=== PATIENT | female | born 1950 | race Caucasian/White ===

== ENCOUNTER 2019-11-07 06:04 | Observation (INO) ==
[2019-11-07] MEDS ORDERED: Acetaminophen IV 1,000 MG/100 ML INFUS..BTL IVPB ONE (06:27)
[2019-11-07] MEDS ORDERED: Famotidine 20 MG/2 ML VIAL IVP ONE (06:27)
[2019-11-07] MEDS ORDERED: CeFAZolin Syr 2,000MG/20 ML 2,000 MG/20 ML SYRINGE IVPB ONE (06:33)
[2019-11-07] MEDS ORDERED: Dexamethasone 4 MG/ML VIAL ONE (07:14)
[2019-11-07] MEDS ORDERED: *HR* Succinylcholine 200 MG/10 ML VIAL IVP ONE (07:14)
[2019-11-07] MEDS ORDERED: Lidocaine -MPF 2% 2 ML VIAL ONE (07:14)
[2019-11-07] MEDS ORDERED: Ondansetron 4 MG/2 ML VIAL ONE (07:14)
[2019-11-07] MEDS ORDERED: *HR* Rocuronium Bromide 50 MG/5 ML VIAL ONE ×2 (07:14→10:07)
[2019-11-07] MEDS ORDERED: *HR* Propofol 200 MG/20 ML VIAL IVP ONE (07:15)
[2019-11-07] MEDS ORDERED: *HR* FentaNYL (PF) 100 MCG/2 ML VIAL ONE (07:15)
[2019-11-07] MEDS ORDERED: Lidocaine/EPI 1:200k 1% PF 10 ML VIAL ONE (07:18)
[2019-11-07] MEDS: Ringers Solution, Lactated 1,000 ML IVC SCH ×2 (07:26→11:38)
[2019-11-07] MEDS ORDERED: *HR* OxyCODONE Immed Rel 5 MG TABLET PO PRN (07:47)
[2019-11-07] MEDS ORDERED: Ondansetron 4 MG/2 ML VIAL IVP ONE (07:47)
[2019-11-07] MEDS ORDERED: *HR* FentaNYL (PF) 100 MCG/2 ML VIAL IVP PRN (07:47)
[2019-11-07] MEDS ORDERED: Ringers Solution, Lactated 1,000 ML IVC SCH (08:00)
[2019-11-07] MEDS ORDERED: EPHEDrine 50 MG/ML VIAL ONE ×2 (08:03→10:55)
[2019-11-07] MEDS ORDERED: *HR* PHENYLEPHRINE 1,000 MCG/10 ML SYRINGE IVP ONE ×2 (08:07→10:55)
[2019-11-07] MEDS ORDERED: *HR* HYDROmorphone (PF) 1 MG/ML SYRINGE ONE (11:17)
[2019-11-07] MEDS ORDERED: Pregabalin 75 MG CAPSULE PO STA (11:56)
[2019-11-07] MEDS ORDERED: Ketorolac 15 MG/ML VIAL IVP STA (11:57)
[2019-11-07] MEDS ORDERED: Ketorolac 30 MG/ML VIAL IVP STA (12:11)
[2019-11-07] MEDS: *HR* HYDROmorphone (PF) 1 MG/ML SYRINGE IVP PRN ×2 (12:16→12:25)
[2019-11-07] MEDS ORDERED: *HR* Promethazine 25 MG/ML VIAL IVP PRN (12:55)
[2019-11-07] MEDS ORDERED: Naloxone 0.4 MG/ML INJ IVP PRN (12:55)
[2019-11-07] MEDS ORDERED: Ondansetron 4 MG/2 ML VIAL IVP PRN (12:55)
[2019-11-07] MEDS ORDERED: Ketorolac 15 MG/ML VIAL IVP PRN (12:55)
[2019-11-07] MEDS: 0.9 % Sodium Chloride 1,000 ML IVC SCH (14:10)
[2019-11-07] MEDS: Acetaminophen IV 1,000 MG/100 ML INFUS..BTL IVPB SCH ×2 (14:12→18:46)
[2019-11-07 15:28] LABS: Hematocrit 34.8 % (35.3-44.9); Hemoglobin 11.2 g/dL (11.5-15.4)
[2019-11-08] MEDS: Acetaminophen IV 1,000 MG/100 ML INFUS..BTL IVPB SCH ×5 (01:09→23:21)
[2019-11-08] MEDS: 0.9 % Sodium Chloride 1,000 ML IVC SCH (04:10)
[2019-11-08 06:05] LABS: Hematocrit 29.7 % (35.3-44.9); Mean Corpuscular Hemoglobin 30.4 pg (28.0-33.3); Mean Corpuscular Volume 94.9 fL (83.0-100.0); Mean Platelet Volume 10.5 fL (9.4-12.4); Platelet Count 179 K/mcL (140-400); Red Blood Count 3.13 M/mcL (3.82-4.97); Red Cell Distribution Width 13.6 % (11.5-14.5)
[2019-11-08 06:12] LABS: Hemoglobin 9.5 g/dL (11.5-15.4)
[2019-11-08 06:30] LABS: BUN/Creatinine Ratio 20 (6-26); Blood Urea Nitrogen 14 mg/dL (8-23); Calcium 8.1 mg/dL (8.6-10.3); Carbon Dioxide 27 mEq/L (23-29); Chloride 108 mEq/L (98-107); Glucose 102 mg/dL (70-105); Osmolality,Calculated 293 (280-300); Potassium 4.2 mEq/L (3.5-5.1); Sodium 141 mEq/L (136-145); eGFR For African Americans > 60 (> 60); eGFR For Non-African Americans > 60 (> 60)
[2019-11-08] MEDS ORDERED: Ketorolac 15 MG/ML VIAL IVP PRN (08:31)
[2019-11-08] MEDS ORDERED: UBIDECARENONE 400 MG PO SCH (09:00)
[2019-11-08] MEDS: Aspirin Enteric Coated 81 MG Tablet PO SCH (09:49)
[2019-11-08 13:37] LABS: Hemoglobin 9.6 g/dL (11.5-15.4)
[2019-11-09] MEDS: Acetaminophen IV 1,000 MG/100 ML INFUS..BTL IVPB SCH (05:37)
[2019-11-09 06:56] VITALS: BP 133/71
[2019-11-09] MEDS: Aspirin Enteric Coated 81 MG Tablet PO SCH (09:32)
== END 2019-11-09 09:56 | disposition home or self-care (01) ==
LOC: SAMDAY 06:04 → 3ANU 06:04
PROVIDERS: ADMIT Urology; ATTEND Urology